=== PATIENT | male | born 1945 | race Caucasian/White ===

== ENCOUNTER → 2020-08-09 | Outpatient (CLI) | payer MEDICARE ==
[~2020-08-09] MED LIST: APIX5TAB PO; CHLO25TA PO; ESZO2TAB22 PO; LISI1TAB23 PO; MELA1TAB6 PO; METR45CR2 TP; MIRA50TA PO; POTA10CA PO
== END | disposition home or self-care (01) ==
LOC: CVU 06:51
PROVIDERS: ATTEND Internal Medicine Clinical Cardiac Electrophysiology
DX: I08.1 Rheumatic disorders of both mitral and tricuspid valves (principal); I48.19 Other persistent atrial fibrillation; I50.30 Unspecified diastolic (congestive) heart failure; I31.3 Pericardial effusion (noninflammatory)
CPT/HCPCS: 78452; 93017; 93306; A9502

== ENCOUNTER 2020-08-10 10:42 | Day surgery (SDC) | payer MEDICARE ==
[~2020-08-10] VITALS: Ht 188 cm; Wt 81.8 kg
[~2020-08-10 10:42] MED LIST changes: -APIX5TAB PO; -CHLO25TA PO; -ESZO2TAB22 PO; -LISI1TAB23 PO; -MELA1TAB6 PO; -METR45CR2 TP; -MIRA50TA PO; -POTA10CA PO; +REGADENOSON 0.4 MG/5 ML SYRINGE ONE
[2020-08-10 11:12] VITALS: BP 127/81
[2020-08-10] MEDS ORDERED: ESZO2TAB22 PO (11:25)
[2020-08-10] MEDS ORDERED: LISI1TAB23 PO (11:25)
[2020-08-10] MEDS ORDERED: METR45CR2 TP (11:25)
[2020-08-10] MEDS ORDERED: MIRA50TA PO (11:25)
[2020-08-10] MEDS ORDERED: MELA1TAB6 PO (11:25)
[2020-08-10] MEDS ORDERED: POTA10CA PO (11:25)
[2020-08-10] MEDS ORDERED: CHLO25TA PO (11:25)
[2020-08-10] MEDS ORDERED: APIX5TAB PO (11:25)
[2020-08-10 11:32] LABS: INTERNATIONAL NORMALIZED RATIO 1.11 (0.93-1.1); PROTHROMBIN TIME 11.8 Seconds (9.6-11.5)
[2020-08-10 11:33] LABS: ANION GAP 4 mmol/L (5-15); CALCIUM 9.2 mg/dL (8.5-10.1); CHLORIDE 105 mmol/L (98-107); CREATININE 0.95 mg/dL (0.7-1.3)
[2020-08-10] MEDS ORDERED: PROPOFOL 10 MG/ML, 20ML ONE (11:55)
== END 2020-08-10 13:20 | disposition home or self-care (01) ==
LOC: CACL 10:42
PROVIDERS: ATTEND Internal Medicine Clinical Cardiac Electrophysiology
DX: I48.19 Other persistent atrial fibrillation (principal); I11.0 Hypertensive heart disease with heart failure; I50.30 Unspecified diastolic (congestive) heart failure; Z87.01 Personal history of pneumonia (recurrent); Z79.01 Long term (current) use of anticoagulants; Z79.899 Other long term (current) drug therapy; Z88.8 Allergy status to other drugs, medicaments and biological substances
CPT/HCPCS: 36415; 80048; 85610; 92960; 93005; J2704; J2785

== ENCOUNTER 2021-01-30 11:03 | Day surgery (SDC) | payer MEDICARE ==
[~2021-01-30] VITALS: Ht 188 cm; Wt 78.0 kg
[~2021-01-30 11:03] MED LIST changes: +APIX5TAB PO; +CHLO25TA PO; +ESZO2TAB22 PO; +LISI1TAB23 PO; +MELA1TAB46 PO; +METR45CR2 TP; +MIRA50TA PO; +POTA10CA PO; -REGADENOSON 0.4 MG/5 ML SYRINGE ONE
[2021-01-30 12:11] LABS: ANION GAP 6 mmol/L (5-15); CHLORIDE 106 mmol/L (98-107); CREATININE 0.79 mg/dL (0.7-1.3)
[2021-01-30] MEDS ORDERED: PROPOFOL 10 MG/ML, 20ML ONE (15:58)
== END 2021-01-30 12:55 | disposition home or self-care (01) ==
LOC: CACL 11:03
PROVIDERS: ATTEND Internal Medicine Clinical Cardiac Electrophysiology
DX: I48.19 Other persistent atrial fibrillation (principal); I11.0 Hypertensive heart disease with heart failure; I50.30 Unspecified diastolic (congestive) heart failure; Z79.01 Long term (current) use of anticoagulants; Z79.890 Hormone replacement therapy; Z79.899 Other long term (current) drug therapy; Z88.8 Allergy status to other drugs, medicaments and biological substances
CPT/HCPCS: 36415; 80048; 92960; J2704